=== PATIENT | female | born 1930 | race Caucasian/White ===

== ENCOUNTER 2016-08-30 19:21 | Inpatient (IN) | payer MEDICARE ==
[~2016-08-30] VITALS: Ht 170.2 cm; Wt 61.5 kg
--- NOTE | 2016-09-02 14:07 | NUR ---
1400: ATTEMPTED TO TRANSFER PT FROM BED TO CHAIR, PT UNABLE TO TOLERATED DUE TO SEVERE PAIN AND BLE CONTRACTURES.
== END 2016-09-04 17:58 | DRG 872 ==
LOC: ER 19:21 → ICU 23:23
PROVIDERS: ADMIT Internal Medicine
PROC: 30233N1 Transfusion of Nonautologous Red Blood Cells into Peripheral Vein, Percutaneous Approach (ICD-10-PCS; principal; 2016-09-01)
PROC: 05H533Z Insertion of Infusion Device into Right Subclavian Vein, Percutaneous Approach (ICD-10-PCS; 2016-09-04)
DX: A41.9 Sepsis, unspecified organism (principal); N39.0 Urinary tract infection, site not specified; N17.9 Acute kidney failure, unspecified; E46 Unspecified protein-calorie malnutrition; Z68.1 Body mass index [BMI] 19.9 or less, adult; R65.20 Severe sepsis without septic shock; B96.20 Unspecified Escherichia coli [E. coli] as the cause of diseases classified elsewhere; I12.9 Hypertensive chronic kidney disease with stage 1 through stage 4 chronic kidney disease, or unspecified chronic kidney disease; N18.3 Chronic kidney disease, stage 3 (moderate); D50.9 Iron deficiency anemia, unspecified; E87.6 Hypokalemia; E83.42 Hypomagnesemia; D47.2 Monoclonal gammopathy; M54.5 Low back pain; J30.9 Allergic rhinitis, unspecified; G89.29 Other chronic pain; E86.0 Dehydration; M19.90 Unspecified osteoarthritis, unspecified site; G30.9 Alzheimer's disease, unspecified; F02.80 Dementia in other diseases classified elsewhere, unspecified severity, without behavioral disturbance, psychotic disturbance, mood disturbance, and anxiety; Z66 Do not resuscitate; K52.9 Noninfective gastroenteritis and colitis, unspecified; Z16.12 Extended spectrum beta lactamase (ESBL) resistance; R19.5 Other fecal abnormalities; N32.81 Overactive bladder; Z87.440 Personal history of urinary (tract) infections; Z79.899 Other long term (current) drug therapy; K44.9 Diaphragmatic hernia without obstruction or gangrene
CPT/HCPCS: 36415; 87507; 92610; 97161-GP; 97166; C1751; J1644; P9021

== ENCOUNTER 2016-08-30 19:21 | Emergency (ER) | payer MEDICARE | END 2016-08-30 23:23 | disposition critical access hospital (66) | LOC: ER 19:21 | DX: A41.9 Sepsis, unspecified organism (principal); K52.9 Noninfective gastroenteritis and colitis, unspecified; I95.9 Hypotension, unspecified; I10 Essential (primary) hypertension; Z79.899 Other long term (current) drug therapy; Z87.440 Personal history of urinary (tract) infections | CPT/HCPCS: 36415; 51702; 96361; 96365; 96368 ==

== ENCOUNTER 2016-10-12 09:33 | Emergency (ER) | payer MEDICARE | END 2016-10-12 13:29 | disposition critical access hospital (66) | LOC: ER 09:33 | DX: A41.9 Sepsis, unspecified organism (principal); R65.20 Severe sepsis without septic shock; J18.9 Pneumonia, unspecified organism; F31.9 Bipolar disorder, unspecified; I10 Essential (primary) hypertension; F03.90 Unspecified dementia, unspecified severity, without behavioral disturbance, psychotic disturbance, mood disturbance, and anxiety; D64.9 Anemia, unspecified; Z86.73 Personal history of transient ischemic attack (TIA), and cerebral infarction without residual deficits; Z79.899 Other long term (current) drug therapy | CPT/HCPCS: 36415; 51702; 87502; 96365; 96367; 96368; J3370 ==

== ENCOUNTER 2016-10-12 09:33 | Inpatient (IN) | payer MEDICARE ==
[~2016-10-12] VITALS: Ht 170.2 cm; Wt 55.8 kg
--- NOTE | 2016-10-14 19:57 | NUR ---
1110-N/O'S TO TRANSFUSE 1 UNIT PRBC'S. STARTED AT THIS TIME 1300-BLOOD COMPLETED AT THIS TIME WITHOUT ANY C/O'S OR REACTIONS 183-MD NOTIFIED OF PT WITH TACHYCARDIA. HR INCREASED TO 138. B/P; STABLE. DENIES PAIN. N/O'S FOR EKG
--- NOTE | 2016-10-14 20:01 | NUR ---
1900-HR: RETURNED TO 116. NAD
--- NOTE | 2016-10-15 16:08 | NUR ---
1245-MD HERE TO SEE AND ASSESS PT. UPDATED ON PT CONDITION. K+: 3.3 AND MG 1.2. PT WITH OCCASIONAL TACHYCARDIA 115-140'S. PT SEEMS AGITATED AND YELLING FOR HER . EASILY REDIRECTED BUT QUICKLY FORGETS AND BECOMES AGITATED AGAIN. MD NOTIFIED. ATIVAN 0.5MG IV OREDERED. SEE ORDERS. 1325-ATIVAN 0.5MG IV GIVEN FOR AGITATION AND TACHYCARDIA 1400-PT APPEARS TO BE RESTING WELL AND COMFORTABLE AT THIS TIME
--- NOTE | 2016-10-15 18:45 | NUR ---
181-PT LYING IN BED APPEARS TO BE RESTING QUIETLY WITH NO C/O'S AT THIS TIME. TELEMETRY SHOWS SVT HR: 219 FOR APPROX 12 SECONDS. DENIES PAIN B/P: 144/81. N/O'S NOTED. PT HR NOW 126
== END 2016-10-17 14:35 | DRG 871 ==
LOC: ER 09:33 → ICU 13:30 → MED 10-16 21:35
PROVIDERS: ADMIT Internal Medicine
PROC: 30233N1 Transfusion of Nonautologous Red Blood Cells into Peripheral Vein, Percutaneous Approach (ICD-10-PCS; principal; 2016-10-14)
PROC: 02HV33Z Insertion of Infusion Device into Superior Vena Cava, Percutaneous Approach (ICD-10-PCS; 2016-10-16)
PROC: B548ZZA Ultrasonography of Superior Vena Cava, Guidance (ICD-10-PCS; 2016-10-16)
DX: A41.9 Sepsis, unspecified organism (principal); E43 Unspecified severe protein-calorie malnutrition; J18.9 Pneumonia, unspecified organism; L89.153 Pressure ulcer of sacral region, stage 3; N39.0 Urinary tract infection, site not specified; N17.9 Acute kidney failure, unspecified; D62 Acute posthemorrhagic anemia; K92.2 Gastrointestinal hemorrhage, unspecified; Z68.1 Body mass index [BMI] 19.9 or less, adult; R65.20 Severe sepsis without septic shock; B96.89 Other specified bacterial agents as the cause of diseases classified elsewhere; Z16.12 Extended spectrum beta lactamase (ESBL) resistance; I12.9 Hypertensive chronic kidney disease with stage 1 through stage 4 chronic kidney disease, or unspecified chronic kidney disease; N18.3 Chronic kidney disease, stage 3 (moderate); I48.91 Unspecified atrial fibrillation; G30.9 Alzheimer's disease, unspecified; F02.80 Dementia in other diseases classified elsewhere, unspecified severity, without behavioral disturbance, psychotic disturbance, mood disturbance, and anxiety; J30.9 Allergic rhinitis, unspecified; N32.81 Overactive bladder; Z87.440 Personal history of urinary (tract) infections; D47.2 Monoclonal gammopathy; M19.90 Unspecified osteoarthritis, unspecified site; Z79.82 Long term (current) use of aspirin; Z79.899 Other long term (current) drug therapy; Z66 Do not resuscitate; Y95 Nosocomial condition; E83.42 Hypomagnesemia; E87.6 Hypokalemia
CPT/HCPCS: 36415; 84145; 87502; 87507; 92610; 93306; C1751; J1644; J2060; J3370; P9021